=== PATIENT | male | born 1935 | race Caucasian/White ===

== ENCOUNTER → 2016-11-02 | Outpatient (CLI) | payer OTHER ==
[~2016-11-02] MED LIST: ASPEC325 PO; GFNSR600 PO; OMEG10007 PO; POTA10CA28 PO; SIMV10TA2 PO
[2016-11-02 13:12] LABS: ALT/SGPT 20 U/L (12-78); AST/SGOT 10 U/L (15-37); BLOOD UREA NITROGEN 19 mg/dl (7-18); BUN/CREATININE RATIO 14.6 (10-20); CALCIUM 8.9 mg/dl (8.5-10.1); CARBON DIOXIDE 29 mmol/L (21-32); CHLORIDE 108 mmol/L (98-107); GLUCOSE 86 mg/dl (70-99); POTASSIUM 4.3 mmol/L (3.5-5.1); SODIUM 142 mmol/L (136-145)
[2016-11-02 13:15] LABS: ALKALINE PHOSPHATASE 54 U/L (45-117); CHOLESTEROL 177 mg/dl (0-200); CHOLESTEROL/HDL RATIO 2.5; HDL CHOLESTEROL 72 mg/dl; TRIGLYCERIDES 47 mg/dl (0-150); VERY LOW DENSITY LIPOPROT CALC 9 mg/dl
== END | disposition home or self-care (01) ==
LOC: C.LABSPEC 11:58
PROVIDERS: ATTEND Internal Medicine
DX: E78.5 Hyperlipidemia, unspecified (principal)

== ENCOUNTER 2021-04-17 09:19 | Inpatient (IN) ==
[2021-04-17 10:33] LABS: Appearance Urine Clear (Clear); Bacteria Urine Automated Negative (Negative); Blood Urine Negative (Negative); Color Urine Dark Yellow; Glucose Urine UA Negative (Negative); Ketones Urine Trace (Negative); Leukocyte Esterase Urine Negative (Negative); Nitrite Urine Negative (Negative); Protein Urine Trace (Negative); RBC Urine Automated 0-4 /hpf (0-4); Specific Gravity Urine 1.029 (1.000-1.030); Urobilinogen Urine Negative (Negative)
[2021-04-17 10:35] LABS: Alanine Aminotransferase 14 U/L (12-78); Albumin Level 2.1 gm/dl (3.4-5.0); Aspartate Aminotransferase 6 U/L (15-37); BUN Creatinine Ratio 16.2 (10-20); Blood Urea Nitrogen 16 mg/dl (7-18); Calcium 8.6 mg/dl (8.5-10.1); Carbon Dioxide 24 mmol/L (21-32); Chloride 99 mmol/L (98-107); Creatinine Clr Calc Pharmacy 60.2 ml/min; Est GFR (African American) 81.3 ml/min; Est GFR (Non-African American) 70.1 ml/min; Glucose 129 mg/dl (70-99); Magnesium 2.1 mg/dl (1.8-2.4); Potassium 4.1 mmol/L (3.5-5.1); Sodium 132 mmol/L (136-145)
[2021-04-17 10:40] LABS: Albumin Globulin Ratio 0.4 (0.9-2); Alkaline Phosphatase 306 U/L (45-117); Bilirubin,Total 1.6 mg/dl (0.2-1); Globulin 4.8 gm/dl (2.5-4.0); NT Pro B Type Natriuretic Pept 4325 pg/ml (0-1800); Total Protein 6.9 gm/dl (6.4-8.2); Troponin I < 0.015 ng/ml (0-0.045)
[2021-04-17 10:43] LABS: Bilirubin Urine 1+ (Negative)
[2021-04-17 10:49] LABS: Hematocrit (blood only) 21.1 % (42-52); Hemoglobin 7.4 g/dL (14.0-18.0); Mean Corpuscular Hemoglobin 30.3 pg (25-34); Mean Corpuscular Hgb Conc 35.1 g/dL (32-36); Mean Corpuscular Volume 86.5 fL (80-100); Platelet Count 3 K/uL (130-400); RDW Coefficient of Variation 14.8 % (11.5-14.5); RDW Standard Deviation 47.2 fL (36.4-46.3); Red Blood Count 2.44 M/uL (4.7-6.1); White Blood Count 0.45 K/uL (4.8-10.8)
[2021-04-17] MEDS ORDERED: VANCOMYCIN HCL 1,750 MG in SODIUM CHLORIDE 0.9% 500 ML IV ONE (10:52)
[2021-04-17] MEDS ORDERED: CEFEPIME 2,000 MG/20 ML VIAL IV STA (10:52)
[2021-04-17] MEDS ORDERED: VANCOMYCIN CONSULT ACTIVE PRN (10:52)
[2021-04-17] MEDS ORDERED: DOXYCYCLINE HYCLATE 100 MG in DEXTROSE 5% 100 ML IV STA (10:54)
--- NOTE | 2021-04-17 11:01 | Emergency Department Note ---
Impression & Plan Pneumonia, Thrombocytopenia, Anemia ED Provider Note INFORMANT: Patient ED PROVIDER(S): Duke Worley MD CHIEF COMPLAINT: Cough PLAN: Disposition: Admitted Condition: Guarded Outpatient prescription management: none Referral: None MEDICAL DECISION MAKING: Patient presented because of worsening cough and weakness. notes he has had a decline recently but really notable over the last few days. Despite outpatient antibiotics he is not improving. The patient had a chest x-ray performed and he has what appears to be right upper and lower lobe pneumonia. The patient had a significant leukopenia and neutropenia on his CBC. He has thrombocytopenia and anemia. Chemistries did not reveal any significant abnormalities. Covid testing negative. The patient underwent blood cultures. He had a type and screen performed. He was consented for packed red blood cell transfusion as well as platelet transfusion. I did discuss the case with his oncologist Dr. Treadwell. He recommended blood, Neupogen, and platelets to be administered. This was done. The patient was treated with IV cefepime, vancomycin, and doxycycline to cover for worsening community-acquired infection. The patient had a slight elevation of his BNP. He has had no hypotension. Significant fluid resuscitation was not administered. Consultation was made with Dr. Harris of the hospitalist service. He evaluated the patient in the ER and admitted him. This twelve-lead ECG showed a normal sinus rhythm with a left bundle branch block. Triage Nursing notes reviewed and agree them. Vital Signs: reviewed and remarkable for borderline tachycardia Differential diagnosis: Pneumonia, COVID-19, infection, dehydration, metabolic abnormality, hypo/hyperglycemia, electrolyte disturbance, anemia, hypoxia, cardiac sources, intracerebral event, toxicologic, neurologic, as well as other pathologies. Diagnostics interpreted by me: ECG: Twelve-lead ECG reveals normal sinus rhythm at 93 bpm. Left axis deviation. Left bundle branch block. No PVCs. Septal Q waves. Cardiac Monitoring: Cardiac monitoring ordered by me: The patient was placed on continuous cardiac monitoring and observed. It revealed a normal sinus rhythm at 99 beats per minute without ectopy or evidence of dysrhythmia. Imaging studies: Chest imaging concerning for multifocal pneumonia on the right. I refer you to the EMR for further details. Patient has no history of vomiting or known aspiration. HPI: The patient is a 85 year old male who presents to the Emergency Room with complaints of chest pain. This started over the last 3 weeks and is worsening. The patient also notes the following associated symptoms, increasing cough, shortness of breath. The patient has been prescribed Augmentin by his PCP for relieving factors. History of MDS and is due for transfusion. Current pain is rated as 5/10. Pt denies LOC, headache, fevers, chills, diaphoresis, visual changes, neck pain, nausea, vomiting, abdominal pain, back pain, melena, hematochezia, urinary symptoms, numbness, weakness, lymphadenopathy, rash, or other complaints. ROS: See above HPI for pertinent positives & negatives. A total of 10 systems reviewed and were otherwise negative. PAST MEDICAL HISTORY:See Below , MDS PAST SURGICAL HISTORY:See Below, FAMILY HISTORY:See Below SOCIAL HISTORY:See Below, HOME MEDICATIONS:See Below ALLERGIES:See Below VITALS:See Below PHYSICAL EXAMINATION: GENERAL: Awake, alert, uncomfortable-appearing, in no distress HENT: Normocephalic, atraumatic. Oropharynx unremarkable. EYES: Pale conjunctiva. Sclera non-icteric. NECK: Inspection normal. Non-tender. Supple. No nuchal rigidity. FROM. No mas ses. RESPIRATORY: Scattered rales on the right. No wheezes. Increasedrespiratory effort. CARDIAC: Normal rate. Normal rhythm. No murmurs. No rubs. Extremities warm and well perfused. Pulses equal. No JVD. GI: Soft, non-distended. No tenderness to palpation. No rebound or guarding. No masses. RECTAL: Deferred. MUSCULOSKELETAL: Atraumatic. Chest examination reveals no tenderness. The back is symmetrical on inspection without obvious abnormality. There is no CVA tenderness to palpation. No joint edema. LOWER EXTREMITIES: Calves are equal size bilaterally and non-tender. No edema. No discoloration. NEURO: Normal sensorium. No sensory or motor deficits noted. SKIN: No rash or jaundice noted. CRITICAL CARE: I have personally spent greater than 35 minutes of critical care time in the direct management of this patient. This includes bedside care, interpretation of diagnostic studies, and testing, discussion with consultants, patient, and family members, and other required patient management activities. These minutes are in excess of all separately billable procedures. Duke Worley MD Past Med/Surg History Medical History (Updated 04/17/21 @ 13:04 by Sandeep Harris MD) History of pelvic fracture MDS (myelodysplastic syndrome) Parkinsons Surgical History (Updated 04/17/21 @ 12:04 by Sandeep Harris MD) History of prostate biopsy S/P aortic valve repair S/P lateral meniscectomy of left knee Family History Father Lung cancer Uncle Lung cancer Social History (Updated 04/17/21 @ 13:03 by Sandeep Harris MD) Smoking Status: Never smoker Number of Years Since Quit: 10; Hx Alcohol Use: No Preferred Language: Kinyarwanda Communication Ability: Effective Principal Scientist Required: No Beliefs That Will Affect Care: None marital status: Current Living Situation: Spouse current occupational status: employed 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[employer] Other Information That Helps Us Care for You: No Feels Safe at Home: Yes Safety Concerns: Feels Safe At This Time Assistive Devices: Glasses, Hearing Aid - Left and Hearing Aid - Right Allergies Allergies Allergy/AdvReac Type Severity Reaction Status Date / Time Sulfa (Sulfonamide Allergy Mild Unknown Verified 04/17/21 10:18 Antibiotics) oxycodone Allergy Unknown Unknown Verified 04/17/21 10:18 Home Meds Home Medications Medication Instructions Recorded Confirmed famotidine 20 mg tablet (Pepcid) 20 mg PO BID 04/16/19 04/17/21 guaifenesin 600 mg tablet, 600 mg PO UD PRN 04/16/19 04/17/21 extended release 12 hr (Mucinex) docusate sodium 100 mg capsule 100 mg PO BID 03/09/21 04/17/21 (Colace) amoxicillin 875 mg tablet 875 mg PO BID 04/17/21 04/17/21 carbidopa ER 25 mg-levodopa 100 mg 1 tab PO TID 04/17/21 04/17/21 tablet,extended release cyanocobalamin (vitamin B-12) 1,000 mcg PO DAILY 04/17/21 04/17/21 1,000 mcg/mL oral drops (Vitamin B-12) thiamine HCl (vitamin B1) 100 mg 100 mg PO DAILY 04/17/21 04/17/21 tablet (Vitamin B-1) Results & Data (ED) Vital Signs Vital Signs - 24 hr 04/17/21 09:26 04/17/21 09:44 04/17/21 10:00 Temperature 36.6 C Temperature Source Temporal Artery Scan Pulse Rate 104 H 98 H 99 H Respiratory Rate 16 25 H 26 H Respiratory Effort / Characteristics Non-Labored Respiratory Depth Normal Blood Pressure 115/62 134/75 Blood Pressure Mean 79 94 Pulse Oximetry 98 Oxygen Delivery Method Room Air Sepsis Recent Fever Within 48 Hours No Sepsis New/Unexplained Change in Mental Status No Sepsis Action Taken by Nursing No Action Required 04/17/21 10:30 04/17/21 10:39 04/17/21 11:00 Temperature Temperature Source Pulse Rate 94 H 91 H Respiratory Rate 28 H 22 Respiratory Effort / Characteristics Respiratory Depth Blood Pressure 119/66 127/67 Blood Pressure Mean 83 87 Pulse Oximetry 96 Oxygen Delivery Method Room Air Sepsis Recent Fever Within 48 Hours Sepsis New/Unexplained Change in Mental Status Sepsis Action Taken by Nursing 04/17/21 11:30 04/17/21 12:00 04/17/21 12:30 Temperature Temperature Source Pulse Rate 95 H 94 H 110 H Respiratory Rate 26 H 28 H 30 H Respiratory Effort / Characteristics Respiratory Depth Blood Pressure 137/74 135/82 161/85 H Blood Pressure Mean 95 99 110 Pulse Oximetry Oxygen Delivery Method Sepsis Recent Fever Within 48 Hours Sepsis New/Unexplained Change in Mental Status Sepsis Action Taken by Nursing Laboratory Data Result diagrams: 04/17/21 09:58 04/17/21 09:58 Lab Results 04/17/21 04/17/21 04/17/21 Range/Units 09:58 09:58 09:58 WBC 0.45 L* (4.8-10.8) K/uL RBC 2.44 L (4.7-6.1) M/uL Hgb 7.4 L (14.0-18.0) g/dL Hct 21.1 L (42-52) % MCV 86.5 (80-100) fL MCH 30.3 (25-34) pg MCHC 35.1 (32-36) g/dL RDW Std Deviation 47.2 H (36.4-46.3) fL RDW Coeff of Sarita 14.8 H (11.5-14.5) % Plt Count 3 L* (130-400) K/uL Immature Gran % (Auto) Cancelled Neut % (Auto) Cancelled Lymph % (Auto) Cancelled [place] % (Auto) Cancelled Eos % (Auto) Cancelled Baso % (Auto) Cancelled Neut # (Auto) Cancelled Lymph # (Auto) Cancelled [place] # (Auto) Cancelled Eos # (Auto) Cancelled Baso # (Auto) Cancelled Immature Gran # (Auto) Cancelled Neutrophils % (Manual) Cancelled Band Neutrophils % Cancelled Lymphocytes % (Manual) Cancelled Prolymphocyte % Cancelled Reactive Lymphs % (Man) Cancelled Monocytes % (Manual) Cancelled Eosinophils % (Manual) Cancelled Basophils % (Manual) Cancelled Metamyelocytes % (Man) Cancelled Myelocytes % (Man) Cancelled Promyelocytes % (Man) Cancelled Blast Cells % (Manual) Cancelled Plasma Cell % (Manual) Cancelled Other Cells % Cancelled Nucleated RBC % Cancelled Neutrophils # (Manual) Cancelled Band Neutrophils # Cancelled Total Absolute Neuts Cancelled Lymphocytes # (Manual) Cancelled Prolymphocyte # Cancelled Reactive Lymphs # Cancelled Total Abs Lymphocytes Cancelled Monocytes # (Manual) Cancelled Eosinophils # (Manual) Cancelled Basophils # (Manual) Cancelled Metamyelocytes # (Man) Cancelled Myelocytes # (Manual) Cancelled Promyelocytes # (Man) Cancelled Blast Cells # (Man) Cancelled Plasma Cell # (Manual) Cancelled Other Cells # Cancelled Nucleated RBCs # (Man) Cancelled Hypersegmented Neuts Cancelled Hyposegmented Neuts Cancelled Hypogranular Neuts Cancelled Large Granular Lymphs Cancelled # Lrg Granular Lymphs Cancelled Hairy Cells Cancelled Smudge Cells Cancelled Toxic Granulation Cancelled Toxic Vacuolation Cancelled Dohle Bodies Cancelled [place] Rods Cancelled Hypogranular Platelets Cancelled Clumped Platelets Cancelled Giant Platelets Cancelled Platelet Satelliting Cancelled RBC Morphology Cancelled Polychromasia Cancelled Hypochromasia Cancelled Poikilocytosis Cancelled Basophilic Stippling Cancelled Anisocytosis Cancelled Microcytosis Cancelled Macrocytosis Cancelled Spherocytes Cancelled Pappenheimer Bodies Cancelled Sickle Cells Cancelled Target Cells Cancelled Tear Drop Cells Cancelled Ovalocytes Cancelled Stomatocytes Cancelled Jacob-Cubero Bodies Cancelled Echinocytes Cancelled Acanthocytes (Spur) Cancelled Rouleaux Cancelled RBC Agglutinates Cancelled Schistocytes Cancelled RBC Morph Comment Cancelled Sezary Cell Cancelled Sodium 132 L (136-145) mmol/L Potassium 4.1 (3.5-5.1) mmol/L Chloride 99 (98-107) mmol/L Carbon Dioxide 24 (21-32) mmol/L Anion Gap 9.0 (3-11) BUN 16 (7-18) mg/dl Creatinine 0.99 (0.6-1.4) mg/dl Est Cr Clr Drug Dosing 60.2 ml/min Est GFR ( Amer) 81.3 ml/min Est GFR (Non-Af Amer) 70.1 ml/min BUN/Creatinine Ratio 16.2 (10-20) Glucose 129 H (70-99) mg/dl Calcium 8.6 (8.5-10.1) mg/dl Magnesium 2.1 (1.8-2.4) mg/dl Total Bilirubin 1.6 H (0.2-1) mg/dl AST 6 L (15-37) U/L ALT 14 (12-78) U/L Alkaline Phosphatase 306 H (45-117) U/L Troponin I < 0.015 (0-0.045) ng/ml NT-Pro-B Natriuret Pep 4325 H (0-1800) pg/ml Total Protein 6.9 (6.4-8.2) gm/dl Albumin 2.1 L (3.4-5.0) gm/dl Globulin 4.8 H (2.5-4.0) gm/dl Albumin/Globulin Ratio 0.4 L (0.9-2) Procalcitonin 0.70 H (0-0.5) ng/ml Urine Color Urine Appearance (Clear) Urine pH (4.5-7.5) Ur Specific [place] (1.000-1.030) Urine Protein (Negative) Urine Glucose (UA) (Negative) Urine Ketones (Negative) Urine Blood (Negative) Urine Nitrite (Negative) Urine Bilirubin (Negative) Urine Urobilinogen (Negative) Ur Leukocyte Esterase (Negative) Urine WBC (Auto) (0-5) /hpf Urine RBC (Auto) (0-4) /hpf U Hyaline Cast (Auto) (0-5) /lpf U Epithel Cells (Auto) (0-5) /lpf Urine Bacteria (Auto) (Negative) COVID-19 Eval Order SARS-CoV-2 (PCR) (Negative) Blood Type Antibody Screen Crossmatch 11/01/2804/17/21 04/17/21 Range/Units 10:10 10:33 10:45 WBC (4.8-10.8) K/uL RBC (4.7-6.1) M/uL Hgb (14.0-18.0) g/dL Hct (42-52) % MCV (80-100) fL MCH (25-34) pg MCHC (32-36) g/dL RDW Std Deviation (36.4-46.3) fL RDW Coeff of Sarita (11.5-14.5) % Plt Count (130-400) K/uL Immature Gran % (Auto) Neut % (Auto) Lymph % (Auto) [place] % (Auto) Eos % (Auto) Baso % (Auto) Neut # (Auto) Lymph # (Auto) [place] # (Auto) Eos # (Auto) Baso # (Auto) Immature Gran # (Auto) Neutrophils % (Manual) Band Neutrophils % Lymphocytes % (Manual) Prolymphocyte % Reactive Lymphs % (Man) Monocytes % (Manual) Eosinophils % (Manual) Basophils % (Manual) Metamyelocytes % (Man) Myelocytes % (Man) Promyelocytes % (Man) Blast Cells % (Manual) Plasma Cell % (Manual) Other Cells % Nucleated RBC % Neutrophils # (Manual) Band Neutrophils # Total Absolute Neuts Lymphocytes # (Manual) Prolymphocyte # Reactive Lymphs # Total Abs Lymphocytes Monocytes # (Manual) Eosinophils # (Manual) Basophils # (Manual) Metamyelocytes # (Man) Myelocytes # (Manual) Promyelocytes # (Man) Blast Cells # (Man) Plasma Cell # (Manual) Other Cells # Nucleated RBCs # (Man) Hypersegmented Neuts Hyposegmented Neuts Hypogranular Neuts Large Granular Lymphs # Lrg Granular Lymphs Hairy Cells Smudge Cells Toxic Granulation Toxic Vacuolation Dohle Bodies [place] Rods Hypogranular Platelets Clumped Platelets Giant Platelets Platelet Satelliting RBC Morphology Polychromasia Hypochromasia Poikilocytosis Basophilic Stippling Anisocytosis Microcytosis Macrocytosis Spherocytes Pappenheimer Bodies Sickle Cells Target Cells Tear Drop Cells Ovalocytes Stomatocytes Jacob-Cubero Bodies Echinocytes Acanthocytes (Spur) Rouleaux RBC Agglutinates Schistocytes RBC Morph Comment Sezary Cell Sodium (136-145) mmol/L Potassium (3.5-5.1) mmol/L Chloride (98-107) mmol/L Carbon Dioxide (21-32) mmol/L Anion Gap (3-11) BUN (7-18) mg/dl Creatinine (0.6-1.4) mg/dl Est Cr Clr Drug Dosing ml/min Est GFR ( Amer) ml/min Est GFR (Non-Af Amer) ml/min BUN/Creatinine Ratio (10-20) Glucose (70-99) mg/dl Calcium (8.5-10.1) mg/dl Magnesium (1.8-2.4) mg/dl Total Bilirubin (0.2-1) mg/dl AST (15-37) U/L ALT (12-78) U/L Alkaline Phosphatase (45-117) U/L Troponin I (0-0.045) ng/ml NT-Pro-B Natriuret Pep (0-1800) pg/ml Total Protein (6.4-8.2) gm/dl Albumin (3.4-5.0) gm/dl Globulin (2.5-4.0) gm/dl Albumin/Globulin Ratio (0.9-2) Procalcitonin (0-0.5) ng/ml Urine Color Dark Yellow Urine Appearance Clear (Clear) Urine pH 5.0 (4.5-7.5) Ur Specific [place] 1.029 (1.000-1.030) Urine Protein Trace H (Negative) Urine Glucose (UA) Negative (Negative) Urine Ketones Trace H (Negative) Urine Blood Negative (Negative) Urine Nitrite Negative (Negative) Urine Bilirubin 1+ H (Negative) Urine Urobilinogen Negative (Negative) Ur Leukocyte Esterase Negative (Negative) Urine WBC (Auto) 1-5 (0-5) /hpf Urine RBC (Auto) 0-4 (0-4) /hpf U Hyaline Cast (Auto) 1-5 (0-5) /lpf U Epithel Cells (Auto) 5-10 H (0-5) /lpf Urine Bacteria (Auto) Negative (Negative) COVID-19 Eval Order Covid19 at [facility] SARS-CoV-2 (PCR) (Negative) Blood Type A Positive Antibody Screen NEGATIVE Crossmatch See Detail 04/17/21 Range/Units 10:45 WBC (4.8-10.8) K/uL RBC (4.7-6.1) M/uL Hgb (14.0-18.0) g/dL Hct (42-52) % MCV (80-100) fL MCH (25-34) pg MCHC (32-36) g/dL RDW Std Deviation (36.4-46.3) fL RDW Coeff of Sarita (11.5-14.5) % Plt Count (130-400) K/uL Immature Gran % (Auto) Neut % (Auto) Lymph % (Auto) [place] % (Auto) Eos % (Auto) Baso % (Auto) Neut # (Auto) Lymph # (Auto) [place] # (Auto) Eos # (Auto) Baso # (Auto) Immature Gran # (Auto) Neutrophils % (Manual) Band Neutrophils % Lymphocytes % (Manual) Prolymphocyte % Reactive Lymphs % (Man) Monocytes % (Manual) Eosinophils % (Manual) Basophils % (Manual) Metamyelocytes % (Man) Myelocytes % (Man) Promyelocytes % (Man) Blast Cells % (Manual) Plasma Cell % (Manual) Other Cells % Nucleated RBC % Neutrophils # (Manual) Band Neutrophils # Total Absolute Neuts Lymphocytes # (Manual) Prolymphocyte # Reactive Lymphs # Total Abs Lymphocytes Monocytes # (Manual) Eosinophils # (Manual) Basophils # (Manual) Metamyelocytes # (Man) Myelocytes # (Manual) Promyelocytes # (Man) Blast Cells # (Man) Plasma Cell # (Manual) Other Cells # Nucleated RBCs # (Man) Hypersegmented Neuts Hyposegmented Neuts Hypogranular Neuts Large Granular Lymphs # Lrg Granular Lymphs Hairy Cells Smudge Cells Toxic Granulation Toxic Vacuolation Dohle Bodies [place] Rods Hypogranular Platelets Clumped Platelets Giant Platelets Platelet Satelliting RBC Morphology Polychromasia Hypochromasia Poikilocytosis Basophilic Stippling Anisocytosis Microcytosis Macrocytosis Spherocytes Pappenheimer Bodies Sickle Cells Target Cells Tear Drop Cells Ovalocytes Stomatocytes Jacob-Cubero Bodies Echinocytes Acanthocytes (Spur) Rouleaux RBC Agglutinates Schistocytes RBC Morph Comment Sezary Cell Sodium (136-145) mmol/L Potassium (3.5-5.1) mmol/L Chloride (98-107) mmol/L Carbon Dioxide (21-32) mmol/L Anion Gap (3-11) BUN (7-18) mg/dl Creatinine (0.6-1.4) mg/dl Est Cr Clr Drug Dosing ml/min Est GFR ( Amer) ml/min Est GFR (Non-Af Amer) ml/min BUN/Creatinine Ratio (10-20) Glucose (70-99) mg/dl Calcium (8.5-10.1) mg/dl Magnesium (1.8-2.4) mg/dl Total Bilirubin (0.2-1) mg/dl AST (15-37) U/L ALT (12-78) U/L Alkaline Phosphatase (45-117) U/L Troponin I (0-0.045) ng/ml NT-Pro-B Natriuret Pep (0-1800) pg/ml Total Protein (6.4-8.2) gm/dl Albumin (3.4-5.0) gm/dl Globulin (2.5-4.0) gm/dl Albumin/Globulin Ratio (0.9-2) Procalcitonin (0-0.5) ng/ml Urine Color Urine Appearance (Clear) Urine pH (4.5-7.5) Ur Specific [place] (1.000-1.030) Urine Protein (Negative) Urine Glucose (UA) (Negative) Urine Ketones (Negative) Urine Blood (Negative) Urine Nitrite (Negative) Urine Bilirubin (Negative) Urine Urobilinogen (Negative) Ur Leukocyte Esterase (Negative) Urine WBC (Auto) (0-5) /hpf Urine RBC (Auto) (0-4) /hpf U Hyaline Cast (Auto) (0-5) /lpf U Epithel Cells (Auto) (0-5) /lpf Urine Bacteria (Auto) (Negative) COVID-19 Eval Order SARS-CoV-2 (PCR) NEGATIVE (Negative) Blood Type Antibody Screen Crossmatch Administered Medications Discontinued Medications Albuterol (Albut/Ipratrop 3mg/0.5mg Neb 3 Ml Vial) 3 ml NEB NOW STA Stop: 04/17/21 12:47 Last Admin: 04/17/21 13:13 Dose: 3 ml Documented by: [id number] Filgrastim (Filgrastim 480 Mcg/1.6 Ml Vial) 300 mcg SC ONE ONE Stop: 04/17/21 12:25 Last Admin: 04/17/21 13:23 Dose: 300 mcg Documented by: [id number] Cefepime HCl (Maxipime) 2,000 mg in 20 mls @ 5 mls/min IV NOW STA; Protocol Stop: 04/17/21 10:55 Last Admin: 04/17/21 11:00 Dose: 5 mls/min Documented by: [id number] Vancomycin HCl 1,750 mg/ (Sodium Chloride) 535 mls @ 200 mls/hr IV NOW ONE Stop: 04/17/21 13:32 Last Infusion: 04/17/21 13:55 Dose: 0 mls/hr Documented by: [id number] Admin: 04/17/21 11:00 Dose: 200 mls/hr Documented by: [id number] Doxycycline Hyclate 100 mg/ (Dextrose) 110 mls @ 50 mls/hr IV NOW STA Stop: 04/17/21 13:05 Last Infusion: 04/17/21 13:55 Dose: 0 mls/hr Documented by: [id number] Admin: 04/17/21 11:19 Dose: 50 mls/hr Documented by: [id number] Imaging Data Radiologist's Impression: Chest X-Ray 04/17/21 10:16 XR chest 1V portable CLINICAL HISTORY: Dyspnea. COMPARISON STUDY: 04/14/2021 TECHNIQUE: 1 view of the chest FINDINGS: Single frontal view of the chest demonstrates the cardiomediastinal silhouette to be within normal limits. The patient is status post previous cardiothoracic surgery. Compared to examination, confluent alveolar opacities are now seen within both the right upper and right lower lobes. Left hemithorax is clear. These findings suggest possible aspiration pneumonitis. There is no evidence for pleural effusion. There is no evidence for vascular congestion. There is no acute osseous pathology. IMPRESSION: Interval development of confluent alveolar opacities within both the right upper and right lower lobes. This rapid development of these large alveolar opacities suggest possible aspiration pneumonitis. ACT 112: Negative or not required by law. Electronically signed by: Isaac Kendall M.D. 04/17/2021 11:12 AM Discharge Plan Visit Data Chief Complaint: Chest Pain Stated Complaint: CHEST PAIN, PNEUMONIA HX ED Provider: Duke Worley Discharge Problem: Pneumonia, Thrombocytopenia, Anemia Patient Disposition: Admitted As Inpatient Discharge Instructions Interventions: ED Discharge Assessment Last Done: 04/17/21 14:17
--- NOTE | 2021-04-17 11:13 | XRay Report ---
XR chest 1V portable CLINICAL HISTORY: Dyspnea. COMPARISON STUDY: 04/14/2021 TECHNIQUE: 1 view of the chest FINDINGS: Single frontal view of the chest demonstrates the cardiomediastinal silhouette to be within normal li mits. The patient is status post previous cardiothoracic surgery. Compared to examination, confluent alveolar opacities are now seen within both the right upper and right lower lobes. Left hemithorax is clear. These findings suggest possible aspiration pneumonitis. There is no evidence for pleural effu terrance. There is no evidence for vascular congestion. There is no acute osseous pathology. IMPRESSION: Interval development of confluent alveolar opacities within both the right upper and righ t lower lobes. This rapid development of these large alveolar opacities suggest possible aspiration p neumonitis. ACT 112: Negative or not required by law. Electronically signed by: Isaac Kendall M.D. 04/17/2021 11:12 AM
--- NOTE | 2021-04-17 12:10 | History & Physical Report ---
Date of Service April 17, 2021 Assessment & Plan (1) Pneumonia: Plan: MRSA nasal swab negative therefore will d/c vancomycin. Switch cefepime to Zosyn due to concern for aspiration. Continue doxycycline for atypical coverage. SLT assessment for aspirations Trial duoneb without significant improvement despite audible wheezing therefore will defer scheduled duonebs or steroids currently as no diagnosis of asthma or COPD. 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 On no current chemotherapy. Plan: VTE prophylaxis - deferred in setting of thrombocytopenia Diet - NPO pending speech evaluation Disposition - admit to med/surg Admission and Anticipated Discharge Date Admission Date: April 17, 2021 History of Present Illness Chief Complaint: Shortness of breath, generalized weakness Primary Care Provider: Puneet Sawant MD Jono Warner is an 85 year old male with Parkinson's and MDS who presents to the ER with productive cough (unknown color), shortness of breath, chest pain (right sided, no radiation, worse on palpation). Sick for the last 2-3 weeks. Last 2-4 days he has been much worse and waking up in morning with mouthful of phlegm. Shortness of breath non-positional, worse on exertion. He was started on Symbicort 4 weeks ago due to wheezing (10 day course reported by patient). He reports temporary relief using this and notes his wheezing has been going on for years with normal pulmonology workup.. CXR was negative at that time. Started 04/14 on amoxicillin due to CXR findings showing multifocal pneumonia at that time. No known choking/coughing after eating. Nose bleed 1 week ago. Prone to spontaneous bleeding but resolves quickly. Feels constipated with black stool but this is longstanding, no new change in bowels. In the ER CXR is concerning for aspiration pneumonia. SARS-COV-2 negative. Plt 3, Hgb 7.4 and WBC 0.45. He was diagnosed with pneumonia, blood cultures taken and he was started on broad spectrum antibiotics with cefepime, doxycycline and vancomycin. Regarding his pancytopenia. This was discussed with his hematology (Dr Treadwell) and recommend Neupogen, Plt transfusion and 2 units blood transfusion. He was referred to medicine for admission and ongoing management. Allergies Allergy/AdvReac Type Severity Reaction Status Date / Time Sulfa (Sulfonamide Allergy Mild Unknown Verified 04/17/21 10:18 Antibiotics) oxycodone Allergy Unknown Unknown Verified 04/17/21 10:18 Home Medications Medication Instructions Recorded Confirmed Type famotidine 20 mg tablet (Pepcid) 20 mg PO BID 04/16/19 04/17/21 History guaifenesin 600 mg tablet, 600 mg PO UD PRN 04/16/19 04/17/21 History extended release 12 hr (Mucinex) docusate sodium 100 mg capsule 100 mg PO BID 03/09/21 04/17/21 History (Colace) amoxicillin 875 mg tablet 875 mg PO BID 04/17/21 04/17/21 History carbidopa ER 25 mg-levodopa 100 mg 1 tab PO TID 04/17/21 04/17/21 History tablet,extended release cyanocobalamin (vitamin B-12) 1,000 mcg PO DAILY 04/17/21 04/17/21 History 1,000 mcg/mL oral drops (Vitamin B-12) thiamine HCl (vitamin B1) 100 mg 100 mg PO DAILY 04/17/21 04/17/21 History tablet (Vitamin B-1) Past Med/Surg History Medical History (Updated 04/17/21 @ 13:04 by Sandeep Harris MD) History of pelvic fracture MDS (myelodysplastic syndrome) Parkinsons Surgical History (Updated 04/17/21 @ 12:04 by Sandeep Harris MD) History of prostate biopsy S/P aortic valve repair S/P lateral meniscectomy of left knee Family History Father Lung cancer Uncle Lung cancer Social History (Updated 04/17/21 @ 13:03 by Sandeep Harris MD) Smoking Status: Never smoker Number of Years Since Quit: 10; Hx Alcohol Use: No Preferred Language: Tanzanian Communication Ability: Effective Communications Agent Required: No Beliefs That Will Affect Care: None marital status: Current Living Situation: Spouse current occupational status: employed 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 Other Information That Helps Us Care for You: No Feels Safe at Home: Yes Safety Concerns: Feels Safe At This Time Assistive Devices: None Review of Systems Review of Systems: All systems reviewed & are unremarkable except as noted in HPI & below Physical Exam Constitutional: + acute distress (respiratory), + ill appearing (pale) and + frail appearing Eyes: PERRL, conjunctivae normal, anicteric sclerae Respiratory: + labored breathing, + retractions, + uses accessory muscles, + cough (dry, frequent), + tachypneic and + audible wheezes (expiratory); + abnormal respiratory effort and + not able to speak in complete sentence Auscultation: + crackles (Right base); no rales, no rhonchi and no wheezes Cardiovascular: Rate/Rhythm: regular rhythm and + tachycardic Heart Sounds: + murmur (systolic LUSB 2/6); + abnormal S2 (loud) Extremities: normal capillary refill; no calf tenderness and no pedal edema Gastrointestinal (Abdomen): Inspection/Auscultation: abdomen normal to inspection and normal bowel sounds; abdomen not distended Percussion/Palpation: abdomen soft; abdomen nontender, no guarding and abdomen not rigid Musculoskeletal: no cyanosis or clubbing, extremities motor strength 5/5 Skin: no rashes, warm and dry Neurologic: moves all extremities and awake; not confused Motor/Sensory: + tremor (very mild left hand); no pronator drift Psychiatric: A+Ox3, euthymic affect Results & Data Results & Data ([facility]) Vital Signs (Past 12 Hours) Vital Signs Temp Pulse Resp BP Pulse Ox 04/17/21 11:30 95 H 26 H 137/74 04/17/21 11:00 91 H 22 127/67 04/17/21 10:39 96 04/17/21 10:30 94 H 28 H 119/66 04/17/21 10:00 99 H 26 H 134/75 04/17/21 09:44 98 H 25 H 04/17/21 09:26 36.6 C 104 H 16 115/62 98 Diagnostic Findings XR chest 1V portable CLINICAL HISTORY: Dyspnea. COMPARISON STUDY: 04/14/2021 TECHNIQUE: 1 view of the chest FINDINGS: Single frontal view of the chest demonstrates the cardiomediastinal silhouette to be within normal limits. The patient is status post previous cardiothoracic surgery. Compared to examination, confluent alveolar opacities are now seen within both the right upper and right lower lobes. Left hemithorax is clear. These findings suggest possible aspiration pneumonitis. There is no evidence for pleural effusion. There is no evidence for vascular congestion. There is no acute osseous pathology. IMPRESSION: Interval development of confluent alveolar opacities within both the right upper and right lower lobes. This rapid development of these large a lveolar opacities suggest possible aspiration pneumonitis. Medications Administered ER Medications Given: Vancomycin 1750mg IV Cefepime 2000mg IV Doxycycline 100mg IV ECG Indication: SOB/dyspnea Rate (beats per minute): 93 Rhythm: normal sinus Findings: + LBBB and + left axis deviation Code Status & VTE Plan Code Status Full VTE Prophylaxis Plan VTE Prophylaxis will be ordered: Yes Reason for no VTE drug order: Contraindicated PG Care Time/CCT Total # of Minutes Spent Total Time Spent with Patient: Total time spent is greater than 50% in coordination of care (as documented) at patient's floor/unit and/or counseling patient: Coding Level of Care Code 22280 Initial Inpt Care Lvl 3 Diagnoses Parkinsons G20 Pancytopenia D61.818 Pneumonia J18.9 S/P aortic valve repair Z98.890 MDS (myelodysplastic syndrome) D46.9
[2021-04-17] MEDS ORDERED: FILGRASTIM 480 MCG/1.6 ML VIAL SC ONE (12:24)
[2021-04-17] MEDS ORDERED: SODIUM CHLORIDE 0.9% 250 ML IV PRN (12:24)
--- NOTE | 2021-04-17 12:24 | Electrocardiogram Report ---
Test Reason : Blood Pressure : / mmHG Vent. Rate : 093 BPM Atrial Rate : 093 BPM P-R Int : 156 ms QRS Dur : 132 ms QT Int : 380 ms P-R-T Axes : 094 -40 086 degrees QTc Int : 472 ms Poor data quality, interpretation may be adversely affected Normal sinus rhythm Left axis deviation Left bundle branch block Cannot rule out Septal infarct (cited on or before 17-APR-2021) Abnormal ECG When compared with ECG of 07-FEB-2011 20:01, No significant change Confirmed by Eric Negro ([id number]) on 04/17/2021 12:23:51 PM Referred By: REFERRED SELF Confirmed By:Eric Negro
[2021-04-17] MEDS ORDERED: ALBUT/IPRATROP 3MG/0.5MG NEB 3 ML VIAL NEB STA (12:46)
[2021-04-17] MEDS ORDERED: guaiFENesin 600 MG TABCR PO PRN (14:55)
[2021-04-17] MEDS ORDERED: ACETAMINOPHEN 325 MG TAB PO PRN (14:55)
[2021-04-17] MEDS ORDERED: ONDANSETRON INJ 2 MG/ML 2 ML VIAL IV PRN (14:55)
[2021-04-17] MEDS ORDERED: PIPERACILLIN/TAZOBACTAM 3.375 GM in DEXTROSE 5% 100 ML IV ONE (16:00)
[2021-04-17] MEDS ORDERED: ALBUT/IPRATROP 3MG/0.5MG NEB 3 ML VIAL NEB PRN (16:14)
[2021-04-17] MEDS: CARBIDOPA/LEVODOPA 25/100MG EXT REL TAB PO SCH ×2 (16:29→20:37)
[2021-04-17] MEDS: DOXYCYCLINE HYCLATE 100 MG in DEXTROSE 5% 100 ML IV SCH (18:43)
[2021-04-17] MEDS ORDERED: Nursing to Pharmacy Communication SCH (18:45)
[2021-04-17] MEDS ORDERED: CEFEPIME 2,000 MG in SYRINGE 0 ML IV SCH (19:00)
[2021-04-17] MEDS: guaiFENesin 600 MG TABCR PO SCH (20:37)
[2021-04-17] MEDS: FAMOTIDINE 20 MG TAB PO SCH (20:37)
[2021-04-17] MEDS: DOCUSATE SODIUM 100 MG CAP PO SCH (20:37)
[2021-04-17] MEDS: SODIUM CHLORIDE 0.9% 1000ML 1,000 ML IV SCH (21:51)
[2021-04-17] MEDS: PIPERACILLIN/TAZOBACTAM 3.375 GM in DEXTROSE 5% 100 ML IV SCH (21:51)
[2021-04-18 00:30] LABS: Hematocrit (blood only) 21.8 % (42-52); Hemoglobin 7.6 g/dL (14.0-18.0)
[2021-04-18 00:54] LABS: Mean Corpuscular Hemoglobin 29.2 pg (25-34); Mean Platelet Volume 8.9 fL (7.4-10.4); Platelet Count 10 K/uL (130-400); RDW Coefficient of Variation 15.3 % (11.5-14.5); RDW Standard Deviation 47.5 fL (36.4-46.3)
[2021-04-18 02:45] LABS: Mean Corpuscular Hgb Conc 34.9 g/dL (32-36); Mean Corpuscular Volume 83.8 fL (80-100)
[2021-04-18] MEDS: DOXYCYCLINE HYCLATE 100 MG in DEXTROSE 5% 100 ML IV SCH ×2 (05:59→17:34)
[2021-04-18] MEDS: PIPERACILLIN/TAZOBACTAM 3.375 GM in DEXTROSE 5% 100 ML IV SCH ×3 (05:59→21:28)
[2021-04-18 06:35] LABS: Hematocrit (blood only) 22.9 % (42-52); Hemoglobin 7.8 g/dL (14.0-18.0); Mean Corpuscular Hemoglobin 29.4 pg (25-34); Mean Corpuscular Hgb Conc 34.1 g/dL (32-36); Mean Corpuscular Volume 86.4 fL (80-100); Platelet Count 39 K/uL (130-400); RDW Coefficient of Variation 15.3 % (11.5-14.5); RDW Standard Deviation 48.3 fL (36.4-46.3); Red Blood Count 2.65 M/uL (4.7-6.1); White Blood Count 0.78 K/uL (4.8-10.8)
[2021-04-18 07:00] LABS: BUN Creatinine Ratio 21.6 (10-20); Calcium 8.5 mg/dl (8.5-10.1); Creatinine Clr Calc Pharmacy 71.8 ml/min; Est GFR (African American) 94.3 ml/min; Est GFR (Non-African American) 81.4 ml/min; Potassium 3.9 mmol/L (3.5-5.1)
[2021-04-18 07:06] LABS: ALC (manual) 0.39 K/uL (1.2-3.4); ANC (manual) 0.32 K/uL (1.4-6.5); Hypogranular Neutrophils 2+; Lymphocytes # (manual) 0.39 K/uL (1.2-3.4); Monocytes # (manual) 0.07 K/uL (0.11-0.59); Monocytes % (manual) 9.5 %; Neutrophils # (manual) 0.32 K/uL (1.4-6.5); Neutrophils % (manual) 40.5 %
[2021-04-18 07:31] LABS: Alanine Aminotransferase < 6 U/L (12-78); Albumin Level 1.8 gm/dl (3.4-5.0); Alkaline Phosphatase 220 U/L (45-117); Aspartate Aminotransferase 7 U/L (15-37); Bilirubin,Total 1.8 mg/dl (0.2-1); Total Protein 6.1 gm/dl (6.4-8.2)
[2021-04-18] MEDS: SODIUM CHLORIDE 0.9% 1000ML 1,000 ML IV SCH (08:18)
[2021-04-18] MEDS: CARBIDOPA/LEVODOPA 25/100MG EXT REL TAB PO SCH ×3 (09:17→20:03)
[2021-04-18] MEDS: CYANOCOBALAMIN 500 MCG TABLET (VITAMIN B-12) PO SCH (09:17)
[2021-04-18] MEDS: DOCUSATE SODIUM 100 MG CAP PO SCH ×2 (09:18→20:02)
[2021-04-18] MEDS: THIAMINE HCL 100 MG TAB PO SCH (09:18)
[2021-04-18] MEDS: guaiFENesin 600 MG TABCR PO SCH ×2 (09:18→20:02)
[2021-04-18] MEDS: FAMOTIDINE 20 MG TAB PO SCH ×2 (09:18→20:02)
--- NOTE | 2021-04-18 11:13 | Hospitalist Progress Note ---
Date of Service April 18, 2021 Assessment & Plan (1) Pneumonia: Plan: - Was initiated on Symbicort x 4 weeks ago due to wheezing (x 10 days treatment); reported temporary relief but states his wheezing has been going on for years and has had a normal pulmonary work-up; recently started on Amoxicillin on 04/14 due to CXR findings of multifocal pneumonia - Continue Zosyn for aspiration concern and Doxycycline for atypical coverage; MRSA nasal swab negative and Vanc was D/Cd - STATE EDITOR for further evaluations for aspiration risk - did discuss with STATE EDITOR with plans to do further testing - Albuterol PRN; Guaifenesin 1200 mg BID - Continue IVF until able to determine dietary allowance (2) Pancytopenia: Plan: - Suspected secondary to MDS - Neutropenic precautions - Received 2 units packed RBCs, 1 unit Plt and Neupogen per [facility] recommendations on 04/18 - Hgb 7.8, WBC 0.78 and platelets up to 39 and will monitor (3) Parkinsons: Plan: - Continue Sinemet ER 25/100 TID (4) S/P aortic valve repair: Plan: - Bioprosthetic aortic valve (5) MDS (myelodysplastic syndrome): Plan: - Since last August. Not on current chemotherapy. Plan: VTE prophylaxis - deferred in setting of thrombocytopenia Diet - NPO pending speech evaluation Disposition - requires ongoing hospital stay at this time Admission and Anticipated Discharge Date Admission Date: April 17, 2021 Subjective Reports doing alright today. Feels his breathing is stable and not too bothered by it. Has a weak cough that is mostly dry but occasionally brings up sputum. He reports chronic swallowing issues but doesn't recall coughing after eating or anything like that. He reports his has told him he should have a speech eval before. He remains afebrile. Platelets are improving and Hgb remaining low but vitals stable. Review of Systems Review of Systems: All systems reviewed & are unremarkable except as noted in Subjective Physical Exam Physical Exam: PHYSICAL EXAM General Appearance: frail, chronically ill appearing but non-toxic in NAD who is A&O x 3 HEENT: Head is normocephalic/atraumatic; Hearing grossly intact; Mucous membranes moist Neck: Supple; Trachea midline; Neg JVD Heart: RRR with systolic LUSB murmur with loud S2 Lungs: Dry weak cough; audible exp. wheeze which does seem to improve after coughing; rhonchi bilateral; Respirations mildly labored Abdomen: Soft, non-tender, non-distended; Positive BS x 4 quadrants Extremities: Neg cyanosis or edema Neurological: Speech clear; Gross motor/sensory function intact; Neg focal neurologic deficits Psychiatric: Appropriate mood/affect Skin: Normal Color; Warm/Dry; Neg rashes, ecchymosis, lacerations/ulcerations Results & Data Results & Data ([facility]) Vital Signs (Past 12 Hours) Vital Signs Temp Pulse Pulse Resp BP BP Pulse Ox 04/18/21 07:20 36.6 C 92 H 18 130/72 92 04/18/21 04:29 101 H 24 92 04/18/21 04:04 36.6 C 91 H 22 120/72 92 04/18/21 03:41 36.3 C L 93 H 18 117/67 92 PG Care Time/CCT Total # of Minutes Spent Total Time Spent with Patient: Total time spent is greater than 50% in coordination of care (as documented) at patient's floor/unit and/or counseling patient: Coding Level of Care Code 09637 Subseq Hosp Care Lvl 3 Diagnoses Pneumonia J18.9 Pancytopenia D61.818 Parkinsons G20 S/P aortic valve repair Z98.890 MDS (myelodysplastic syndrome) D46.9
[2021-04-18 16:16] LABS: Hematocrit (blood only) 23.3 % (42-52); Hemoglobin 8.3 g/dL (14.0-18.0); Mean Corpuscular Hemoglobin 30.1 pg (25-34); Mean Corpuscular Hgb Conc 35.6 g/dL (32-36); Mean Corpuscular Volume 84.4 fL (80-100); Mean Platelet Volume 8.8 fL (7.4-10.4); Platelet Count 32 K/uL (130-400); RDW Coefficient of Variation 15.4 % (11.5-14.5); Red Blood Count 2.76 M/uL (4.7-6.1); White Blood Count 0.65 K/uL (4.8-10.8)
[2021-04-18 16:32] LABS: Alanine Aminotransferase < 6 U/L (12-78); Albumin Level 1.8 gm/dl (3.4-5.0); Aspartate Aminotransferase 6 U/L (15-37); BUN Creatinine Ratio 21.9 (10-20); Blood Urea Nitrogen 20 mg/dl (7-18); Calcium 8.3 mg/dl (8.5-10.1); Carbon Dioxide 24 mmol/L (21-32); Chloride 102 mmol/L (98-107); Creatinine Clr Calc Pharmacy 66.2 ml/min; Est GFR (African American) 91.2 ml/min; Est GFR (Non-African American) 78.7 ml/min; Glucose 136 mg/dl (70-99); Potassium 3.9 mmol/L (3.5-5.1); Sodium 133 mmol/L (136-145)
[2021-04-18 16:36] LABS: Albumin Globulin Ratio 0.4 (0.9-2); Alkaline Phosphatase 237 U/L (45-117); Bilirubin,Total 1.2 mg/dl (0.2-1); Globulin 4.5 gm/dl (2.5-4.0); Total Protein 6.3 gm/dl (6.4-8.2)
[2021-04-18] MEDS: ALBUT/IPRATROP 3MG/0.5MG NEB 3 ML VIAL NEB SCH ×2 (19:34→23:07)
[2021-04-19] MEDS: ALBUT/IPRATROP 3MG/0.5MG NEB 3 ML VIAL NEB SCH ×6 (03:05→23:04)
[2021-04-19] MEDS: PIPERACILLIN/TAZOBACTAM 3.375 GM in DEXTROSE 5% 100 ML IV SCH ×3 (06:22→21:29)
[2021-04-19] MEDS: DOXYCYCLINE HYCLATE 100 MG in DEXTROSE 5% 100 ML IV SCH ×2 (06:22→19:13)
[2021-04-19] MEDS: DOCUSATE SODIUM 100 MG CAP PO SCH ×2 (08:42→19:49)
[2021-04-19] MEDS: FAMOTIDINE 20 MG TAB PO SCH ×2 (08:44→19:50)
[2021-04-19] MEDS: THIAMINE HCL 100 MG TAB PO SCH (08:44)
[2021-04-19] MEDS: guaiFENesin 600 MG TABCR PO SCH ×2 (08:45→19:49)
[2021-04-19] MEDS: CARBIDOPA/LEVODOPA 25/100MG EXT REL TAB PO SCH ×3 (08:46→19:50)
[2021-04-19] MEDS: CYANOCOBALAMIN 500 MCG TABLET (VITAMIN B-12) PO SCH (08:46)
[2021-04-19] MEDS ORDERED: FILGRASTIM 300 MCG/ML VIAL SQ SCH (12:00)
[2021-04-19 15:00] LABS: Mean Corpuscular Hgb Conc 34.9 g/dL (32-36)
[2021-04-19 15:17] LABS: Hematocrit (blood only) 21.8 % (42-52); Hemoglobin 7.6 g/dL (14.0-18.0); Hypogranular Neutrophils 2+; Lymphocytes # (auto) 0.24 K/uL (1.2-3.4); Lymphocytes % (auto) 34.3 %; Mean Corpuscular Hemoglobin 29.8 pg (25-34); Mean Corpuscular Volume 85.5 fL (80-100); Monocytes # (auto) 0.09 K/uL (0.11-0.59); Monocytes % (auto) 12.9 %; Neutrophils # (auto) 0.37 K/uL (1.4-6.5); Neutrophils % (auto) 52.8 %; Platelet Count 28 K/uL (130-400); Platelet Estimate SIGNIFIC DECREASED (Normal); Red Blood Count 2.55 M/uL (4.7-6.1)
[2021-04-19] MEDS ORDERED: SODIUM CHLORIDE 0.9% 250 ML IV PRN (15:21)
--- NOTE | 2021-04-19 17:40 | Hospitalist Progress Note ---
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 Treadwell reports patient has basically no bone marrow - Neutropenic precautions - Received 2 units packed RBCs, 1 unit Plt and Neupogen per [facility] recommendations on 04/18; will transfuse 2 units on 04/19 and monitor - Per Dr. Treadwell - recommending daily Neupogen to try and stimulate WBC (3) Parkinsons: Plan: - Continue Sinemet ER 25/100 TID (4) S/P aortic valve repair: Plan: - Bioprosthetic aortic valve (5) MDS (myelodysplastic syndrome): Plan: - Since last August. Not on current chemotherapy. Plan: - VTE prophylaxis - deferred in setting of thrombocytopenia - Disposition - requires ongoing hospital stay at this time; do not anticipate home needs -- Patient will be moving to [place] and is well established with a bone marrow specialist down there. Sees Dr. Treadwell on Mondays and for transfusions Admission and Anticipated Discharge Date Admission Date: April 17, 2021 Subjective Reports feeling a bit better today. Remains on RA. Denies SOB when resting but did have some SOB with ambulating with PT today. Spoke with his oncologist Dr. Treadwell this morning to provide update and recommendations for further treatment. Tolerating diet. Verbalizes no new complaints. Updated at bedside Review of Systems Review of Systems: All systems reviewed & are unremarkable except as noted in Subjective Physical Exam Physical Exam: PHYSICAL EXAM General Appearance: frail, chronically ill appearing but non-toxic in NAD who is A&O x 3 HEENT: Head is normocephalic/atraumatic; Hearing grossly intact; Mucous membranes moist Neck: Supple; Trachea midline; Neg JVD Heart: RRR with systolic LUSB murmur with loud S2 Lungs: Dry weak cough; CTA diffusely but diminished; no audible wheezing today Abdomen: Soft, non-tender, non-distended; Positive BS x 4 quadrants Extremities: Neg cyanosis or edema Neurological: Speech clear; Gross motor/sensory function intact; Neg focal neurologic deficits Psychiatric: Appropriate mood/affect; mask-like face Skin: Normal Color; Warm/Dry Results & Data Results & Data ([facility]) Vital Signs (Past 12 Hours) Vital Signs Temp Pulse Pulse Resp BP BP Pulse Ox 04/19/21 17:13 36.7 C 93 H 16 128/73 98 04/19/21 16:58 36.5 C 97 H 18 122/71 98 04/19/21 16:41 36.4 C L 92 H 20 133/78 98 04/19/21 16:21 91 H 22 96 04/19/21 15:11 36.9 C 85 16 118/70 97 04/19/21 13:20 94 04/19/21 11:13 87 20 96 04/19/21 07:36 36.5 C 91 H 18 132/76 95 04/19/21 07:06 91 H 20 90 PG Care Time/CCT Total # of Minutes Spent Total Time Spent with Patient: Total time spent is greater than 50% in coordination of care (as documented) at patient's floor/unit and/or counseling patient: Coding Level of Care Code 27519 Subseq Hosp Care Lvl 3 Diagnoses Pneumonia J18.9 Pancytopenia D61.818 Parkinsons G20 S/P aortic valve repair Z98.890 MDS (myelodysplastic syndrome) D46.9
[2021-04-20] MEDS: ALBUT/IPRATROP 3MG/0.5MG NEB 3 ML VIAL NEB SCH ×2 (04:17→08:08)
[2021-04-20] MEDS: PIPERACILLIN/TAZOBACTAM 3.375 GM in DEXTROSE 5% 100 ML IV SCH ×3 (05:15→21:48)
[2021-04-20 05:31] LABS: Hematocrit (blood only) 27.4 % (42-52); Hemoglobin 9.4 g/dL (14.0-18.0); Mean Corpuscular Hgb Conc 34.3 g/dL (32-36); Mean Corpuscular Volume 87.5 fL (80-100); Mean Platelet Volume 9.3 fL (7.4-10.4); Platelet Count 16 K/uL (130-400); RDW Coefficient of Variation 15.6 % (11.5-14.5); RDW Standard Deviation 50.2 fL (36.4-46.3); Red Blood Count 3.13 M/uL (4.7-6.1); White Blood Count 0.84 K/uL (4.8-10.8)
[2021-04-20 05:46] LABS: BUN Creatinine Ratio 20.7 (10-20); Calcium 8.2 mg/dl (8.5-10.1); Creatinine Clr Calc Pharmacy 81.7 ml/min; Est GFR (African American) 99.4 ml/min; Est GFR (Non-African American) 85.8 ml/min
[2021-04-20 05:53] LABS: ALC (manual) 0.39 K/uL (1.2-3.4); ANC (manual) 0.39 K/uL (1.4-6.5); Dohle Bodies Occasional; Eosinophils # (manual) 0.01 K/uL (0-0.5); Eosinophils % (manual) 0.9 %; Hypogranular Neutrophils 3+; Lymphocytes # (manual) 0.39 K/uL (1.2-3.4); Lymphocytes % (manual) 46.9 %; Monocytes # (manual) 0.04 K/uL (0.11-0.59); Monocytes % (manual) 5.3 %; Neutrophils # (manual) 0.39 K/uL (1.4-6.5); Neutrophils % (manual) 46.9 %; Toxic Granulation Occasional; Toxic Vacuolation Occasional
[2021-04-20] MEDS: DOXYCYCLINE HYCLATE 100 MG in DEXTROSE 5% 100 ML IV SCH ×2 (07:54→18:10)
[2021-04-20] MEDS: DOCUSATE SODIUM 100 MG CAP PO SCH ×2 (08:42→21:07)
[2021-04-20] MEDS: CYANOCOBALAMIN 500 MCG TABLET (VITAMIN B-12) PO SCH (08:42)
[2021-04-20] MEDS: CARBIDOPA/LEVODOPA 25/100MG EXT REL TAB PO SCH ×3 (08:42→21:07)
[2021-04-20] MEDS: THIAMINE HCL 100 MG TAB PO SCH (08:43)
[2021-04-20] MEDS: guaiFENesin 600 MG TABCR PO SCH ×2 (08:43→21:08)
[2021-04-20] MEDS: FAMOTIDINE 20 MG TAB PO SCH ×2 (08:43→21:07)
[2021-04-20] MEDS ORDERED: FILGRASTIM 300 MCG/ML VIAL SQ ONE (11:00)
[2021-04-20] MEDS: ALBUT/IPRATROP 3MG/0.5MG NEB 3 ML VIAL NEB PRN ×2 (15:00→20:31)
--- NOTE | 2021-04-20 16:22 | Hospitalist Progress Note ---
Date of Service April 20, 2021 Assessment & Plan (1) Pneumonia: Plan: - Was initiated on Symbicort x 4 weeks ago due to wheezing (x 10 days treatment); reported temporary relief but states his wheezing has been going on for years and has had a normal pulmonary work-up; recently started on Amoxicillin on 04/14 due to CXR findings of multifocal pneumonia - Continue Zosyn for aspiration concern and Doxycycline for atypical coverage; MRSA nasal swab negative and Vanc was D/Cd -- Will convert to Augmentin and Doxy orally to finish a course - given immunocompromised state will treat x 10 days -- Given length of illness, suspect this may have initiated as a viral illness that progressed to a bacterial illness - PHYSICIAN PRACTICE CONSULTANT evaluated for aspiration risk - no signs of aspiration - Albuterol PRN; Guaifenesin 1200 mg BID - Do not feel steroids will assist as no underlying lung disease - no lung field wheezing -- appears more secretions related which has been longstanding for years per patient//Dr. 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 Treadwell reports patient has basically no bone marrow - Neutropenic precautions - Received 2 units packed RBCs, 1 unit Plt and Neupogen per [facility]ology recommendations on 04/18; will transfuse 2 units on 04/19 and monitor -- Given Lasix 20 mg IV x 1 dose - Per Dr. Treadwell - recommending daily Neupogen to try and stimulate WBC (3) Parkinsons: Plan: - Continue Sinemet ER 25/100 TID (4) S/P aortic valve repair: Plan: - Bioprosthetic aortic valve (5) MDS (myelodysplastic syndrome): Plan: - Since last August. Not on current chemotherapy. Plan: - VTE prophylaxis - deferred in setting of thrombocytopenia - Disposition - requires ongoing hospital stay at this time; home services on D/ - suspect D/C on Saturday -- Patient will be moving to [place] and is well established with a bone marrow specialist down there. Sees Dr. Treadwell on Mondays and for transf usions as he is transfusion dependent Admission and Anticipated Discharge Date Admission Date: April 17, 2021 Subjective Reports feeling pretty well today. Breathing has stablized and remains on RA. Still has auditory wheezing but seems to improve some after he coughs. blood counts slowly improving. Review of Systems Review of Systems: All systems reviewed & are unremarkable except as noted in Subjective Physical Exam Physical Exam: PHYSICAL EXAM General Appearance: frail, chronically ill appearing but non-toxic in NAD who is A&O x 3 HEENT: Head is normocephalic/atraumatic; Hearing grossly intact; Mucous membranes moist Neck: Supple; Trachea midline; Neg JVD Heart: RRR with systolic LUSB murmur with loud S2 Lungs: Dry weak cough; CTA diffusely but diminished; no audible wheezing today Abdomen: Soft, non-tender, non-distended; Positive BS x 4 quadrants Extremities: Neg cyanosis or edema Neurological: Speech clear; Gross motor/sensory function intact; Neg focal neurologic deficits Psychiatric: Appropriate mood/affect; mask-like face Skin: Normal Color; Warm/Dry Results & Data Results & Data ([facility]) Vital Signs (Past 12 Hours) Vital Signs Temp Pulse Resp BP Pulse Ox 04/20/21 15:00 88 18 97 04/20/21 14:40 36.6 C 89 19 148/83 H 97 04/20/21 13:51 98 04/20/21 08:08 84 16 96 04/20/21 07:34 36.4 C L 90 20 134/76 96 PG Care Time/CCT Total # of Minutes Spent Total Time Spent with Patient: Total time spent is greater than 50% in coordination of care (as documented) at patient's floor/unit and/or counseling patient: Coding Level of Care Code 11576 Subseq Hosp Care Lvl 3 Diagnoses Pneumonia J18.9 Pancytopenia D61.818 Parkinsons G20 S/P aortic valve repair Z98.890 MDS (myelodysplastic syndrome) D46.9
[2021-04-20] MEDS ORDERED: FUROSEMIDE INJ 20 MG/2 ML VIAL IV ONE (16:44)
[2021-04-21] MEDS: ALBUT/IPRATROP 3MG/0.5MG NEB 3 ML VIAL NEB PRN ×2 (04:46→21:47)
[2021-04-21] MEDS: DOXYCYCLINE HYCLATE 100 MG CAP PO SCH ×2 (08:57→20:06)
[2021-04-21] MEDS: CARBIDOPA/LEVODOPA 25/100MG EXT REL TAB PO SCH ×3 (08:57→20:06)
[2021-04-21] MEDS: DOCUSATE SODIUM 100 MG CAP PO SCH ×2 (08:57→20:06)
[2021-04-21] MEDS: guaiFENesin 600 MG TABCR PO SCH ×2 (08:57→20:05)
[2021-04-21] MEDS: THIAMINE HCL 100 MG TAB PO SCH (08:57)
[2021-04-21] MEDS: AMOXICILLIN/CLAVULANATE 875 MG TAB PO SCH ×2 (08:57→17:37)
[2021-04-21] MEDS: FAMOTIDINE 20 MG TAB PO SCH ×2 (08:57→20:05)
[2021-04-21] MEDS: CYANOCOBALAMIN 500 MCG TABLET (VITAMIN B-12) PO SCH (08:57)
[2021-04-21] MEDS ORDERED: FILGRASTIM 300 MCG/ML VIAL SQ SCH (09:00)
--- NOTE | 2021-04-21 12:57 | Hospitalist Progress Note ---
Date of Service April 21, 2021 Assessment & Plan (1) Pneumonia: Plan: - Was initiated on Symbicort x 4 weeks ago due to wheezing (x 10 days treatment); reported temporary relief but states his wheezing has been going on for years and has had a normal pulmonary work-up; recently started on Amoxicillin on 04/14 due to CXR findings of multifocal pneumonia - Initially treated with Zosyn for aspiration concern and Doxycycline for atypical coverage; MRSA nasal swab negative and Vanc was D/Cd -- Converted to Augmentin and Doxy orally to finish a course - given immunocompromised state will treat x 10 days -- 26 March -- Given length of illness, suspect this may have initiated as a viral illness that progressed to a bacterial illness - 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 Treadwell reports patient has basically no bone marrow - Neutropenic precautions - Received 2 units packed RBCs, 1 unit Plt and Neupogen per [facility] recommendations on 04/18; will transfuse 2 units on 04/19 and monitor -- Given Lasix 20 mg IV x 1 dose on 04/20 - Labs in AM - transfuse pending numbers - Per Dr. Treadwell - recommending daily Neupogen to try and stimulate WBC (3) Parkinsons: Plan: - Continue Sinemet ER 25/100 TID (4) S/P aortic valve repair: Plan: - Bioprosthetic aortic valve (5) MDS (myelodysplastic syndrome): Plan: - Since last August. Not on current chemotherapy. Plan: - VTE prophylaxis - deferred in setting of thrombocytopenia - Disposition - requires ongoing hospital stay at this time; home services on D/ - suspect D/C on Saturday -- Patient will be moving to [place] and is well established with a bone marrow specialist down there. Sees Dr. Treadwell on Mondays and for transfusions as he is transfusion dependent Admission and Anticipated Discharge Date Admission Date: April 17, 2021 Subjective Reports doing overall okay today. Did have some production of phlegm this morning but predominantly a dry cough. Remaining on RA. Tolerating diet. Verbalizes no other complaints. Review of Systems Review of Systems: All systems reviewed & are unremarkable except as noted in Subjective Physical Exam Physical Exam: PHYSICAL EXAM General Appearance: frail, chronically ill appearing but non-toxic in NAD who is A&O x 3 HEENT: Head is normocephalic/atraumatic; Hearing grossly intact; Mucous membranes moist Neck: Supple; Trachea midline; Neg JVD Heart: RRR with systolic LUSB murmur with loud S2 Lungs: Dry weak cough; CTA diffusely but diminished; no audible wheezing currently Abdomen: Soft, non-tender, non-distended; Positive BS x 4 quadrants Extremities: Neg cyanosis or edema Neurological: Speech clear; Gross motor/sensory function intact; Neg focal neurologic deficits Psychiatric: Appropriate mood/affect; mask-like face Skin: Normal Color; Warm/Dry Results & Data Results & Data ([facility]) Vital Signs (Past 12 Hours) Vital Signs Temp Pulse Resp BP Pulse Ox 04/21/21 07:25 37.0 C 90 20 126/72 95 04/21/21 06:15 36.4 C L 90 17 129/74 93 04/21/21 04:46 97 H 20 99 PG Care Time/CCT Total # of Minutes Spent Total Time Spent with Patient: Total time spent is greater than 50% in coordination of care (as documented) at patient's floor/unit and/or counseling patient: Coding Level of Care Code 14931 Subseq Hosp Care Lvl 3 Diagnoses Pneumonia J18.9 Pancytopenia D61.818 Parkinsons G20 S/P aortic valve repair Z98.890 MDS (myelodysplastic syndrome) D46.9
[2021-04-21] MEDS: BENZONATATE 100 MG CAPSULE PO SCH ×2 (15:21→20:07)
[2021-04-21] MEDS ORDERED: CALCIUM CARBONATE 500 MG CHEWABLE TAB PO PRN (21:44)
[2021-04-22] MEDS: CYANOCOBALAMIN 500 MCG TABLET (VITAMIN B-12) PO SCH (09:28)
[2021-04-22] MEDS: THIAMINE HCL 100 MG TAB PO SCH (09:28)
[2021-04-22] MEDS: guaiFENesin 600 MG TABCR PO SCH (09:28)
[2021-04-22] MEDS: BENZONATATE 100 MG CAPSULE PO SCH ×2 (09:29→14:29)
[2021-04-22] MEDS: DOCUSATE SODIUM 100 MG CAP PO SCH (09:29)
[2021-04-22] MEDS: FAMOTIDINE 20 MG TAB PO SCH (09:29)
[2021-04-22] MEDS: DOXYCYCLINE HYCLATE 100 MG CAP PO SCH (09:29)
[2021-04-22] MEDS: AMOXICILLIN/CLAVULANATE 875 MG TAB PO SCH (09:29)
[2021-04-22] MEDS: CARBIDOPA/LEVODOPA 25/100MG EXT REL TAB PO SCH ×2 (09:29→14:29)
[2021-04-22 10:41] LABS: Hematocrit (blood only) 26.7 % (42-52); Hemoglobin 9.1 g/dL (14.0-18.0); Mean Corpuscular Hemoglobin 29.7 pg (25-34); Mean Corpuscular Hgb Conc 34.1 g/dL (32-36); Mean Corpuscular Volume 87.3 fL (80-100); Mean Platelet Volume 10.5 fL (7.4-10.4); Platelet Count 4 K/uL (130-400); RDW Coefficient of Variation 14.9 % (11.5-14.5); RDW Standard Deviation 47.8 fL (36.4-46.3); Red Blood Count 3.06 M/uL (4.7-6.1); White Blood Count 0.88 K/uL (4.8-10.8)
[2021-04-22 10:48] LABS: BUN Creatinine Ratio 19.9 (10-20); Calcium 8.3 mg/dl (8.5-10.1); Creatinine Clr Calc Pharmacy 72.7 ml/min; Est GFR (African American) 94.8 ml/min; Est GFR (Non-African American) 81.8 ml/min; Potassium 3.6 mmol/L (3.5-5.1)
[2021-04-22 11:05] LABS: ALC (manual) 0.32 K/uL (1.2-3.4); ANC (manual) 0.41 K/uL (1.4-6.5); Basophils # (manual) 0.03 K/uL (0-0.2); Basophils % (manual) 3.1 %; Lymphocytes # (manual) 0.32 K/uL (1.2-3.4); Lymphocytes % (manual) 36.5 %; Monocytes # (manual) 0.11 K/uL (0.11-0.59); Monocytes % (manual) 12.5 %; Myelocytes # (manual) 0.01 K/uL (0-0); Neutrophils # (manual) 0.41 K/uL (1.4-6.5); Neutrophils % (manual) 46.9 %; Platelet Estimate SIGNIFIC DECREASED (Normal)
--- NOTE | 2021-04-22 17:29 | Discharge Summary ---
Date of Service April 22, 2021 Admission HPI Per Admitting Provider Jono Warner is an 85 year old male with Parkinson's and MDS who presents to the ER with productive cough (unknown color), shortness of breath, chest pain (right sided, no radiation, worse on palpation). Sick for the last 2-3 weeks. Last 2-4 days he has been much worse and waking up in morning with mouthful of phlegm. Shortness of breath non-positional, worse on exertion. He was started on Symbicort 4 weeks ago due to wheezing (10 day course reported by patient). He reports temporary relief using this and notes his wheezing has been going on for years with normal pulmonology workup.. CXR was negative at t hat time. Started 04/14 on amoxicillin due to CXR findings showing multifocal pneumonia at that time. No known choking/coughing after eating. Nose bleed 1 week ago. Prone to spontaneous bleeding but resolves quickly. Feels constipated with black stool but this is longstanding, no new change in bowels. In the ER CXR is concerning for aspiration pneumonia. SARS-COV-2 negative. Plt 3, Hgb 7.4 and WBC 0.45. He was diagnosed with pneumonia, blood cultures taken and he was started on broad spectrum antibiotics with cefepime, doxycycline and vancomycin. Regarding his pancytopenia. This was discussed with his hematology (Dr Treadwell) and recommend Neupogen, Plt transfusion and 2 units blood transfusion. He was referred to medicine for admission and ongoing management. Principal Diagnosis Multifocal Pneumonia; Chronic Pancytopenia Discharge Exam PHYSICAL EXAM General Appearance: frail, chronically ill appearing but non-toxic in NAD who is A&O x 3 HEENT: Head is normocephalic/atraumatic; Hearing grossly intact; Mucous membranes moist Neck: Supple; Trachea midline; Neg JVD Heart: RRR with systolic LUSB murmur with loud S2 Lungs: Dry weak cough; CTA diffusely but diminished at bases; no audible wheezing currently Abdomen: Soft, non-tender, non-distended; Positive BS x 4 quadrants Extremities: Neg cyanosis or edema Neurological: Speech clear; Gross motor/sensory function intact; Neg focal neurologic deficits, gait with stooped shoulders but no lose of balance Psychiatric: Appropriate mood/affect; mask-like face Skin: Normal Color; Warm/Dry Discharge Data Allergies Allergy/AdvReac Type Severity Reaction Status Date / Time Sulfa (Sulfonamide Allergy Mild Unknown Verified 04/24/21 11:47 Antibiotics) oxycodone Allergy Unknown Unknown Verified 04/24/21 11:47 Consultations 04/17/21 12:26 ED Decision to Admit Stat Ordered Studies Chest X-Ray 04/17/21 10:16 XR chest 1V portable CLINICAL HISTORY: Dyspnea. COMPARISON STUDY: 04/14/2021 TECHNIQUE: 1 view of the chest FINDINGS: Single frontal view of the chest demonstrates the cardiomediastinal silhouette to be within normal limits. The patient is status post previous cardiothoracic surgery. Compared to examination, confluent alveolar opacities are now seen within both the right upper and right lower lobes. Left hemithorax is clear. These findings suggest possible aspiration pneumonitis. There is no evidence for pleural effusion. There is no evidence for vascular congestion. There is no acute osseous pathology. IMPRESSION: Interval development of confluent alveolar opacities within both the right upper and right lower lobes. This rapid development of these large alveolar opacities suggest possible aspiration pneumonitis. ACT 112: Negative or not required by law. Electronically signed by: Isaac Kendall M.D. 04/17/2021 11:12 AM Hospital Course (1) Pneumonia: - Was initiated on Symbicort x 4 weeks ago due to wheezing (x 10 days treatment); reported temporary relief but states his wheezing has been going on for years and has had a normal pulmonary work-up; recently started on Amoxicillin on 04/14 due to CXR findings of multifocal pneumonia - Initially treated with Zosyn for aspiration concern and Doxycycline for atypical coverage; MRSA nasal swab negative and Vanc was D/Cd -- Converted to Augmentin and Doxy orally to finish a course - given immunocompromised state will treat x 10 days total -- 26 March -- Given length of illness, suspect this may have initiated as a viral illness that progressed to a bacterial illness - STUMP BLOWER evaluated for aspiration risk - no signs of aspiration - Albuterol PRN; Guaifenesin 1200 mg BID - Do not feel steroids will assist as no underlying lung disease - no lung field wheezing -- appears more secretions related which has been longstanding for years per patient//Dr. 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 Treadwell reports patient has basically no bone marrow - Neutropenic precautions - Received 4 units packed RBCs, 3 unit Plt and Neupogen per [facility] hematology recommendations during hospitalization; -- Given Lasix 20 mg IV x 1 dose on 04/20 -- WBC currently 0.88 (slowly trending up), Total abs neutrophils 0.41 (slowly trending up); Hgb 9.1; platelets were 4 on AM labs but did transfuse 1 unit but did not recheck on D/C - Follows with Dr. Treadwell on Saturday/ for transfusion - plan to continue normal transfusion plan - Did discuss with Dr. Treadwell on multiple occasions during admission (3) Parkinsons: - Continue Sinemet ER 25/100 TID (4) S/P aortic valve repair: - Bioprosthetic aortic valve (5) MDS (myelodysplastic syndrome): - Since last August. Not on current chemotherapy. - VTE prophylaxis - deferred in setting of thrombocytopenia - Disposition -- Patient will be moving to [place] and is well established with a bone marrow specialist down there. Sees Dr. Treadwell on Mondays and for transfusions as he is transfusion dependent -- Complete Abx course and inhaler/spacer provided -- Updated and daughter at bedside on day of discharge Total Time Total Time Spent Total Time Spent (In Minutes): Spent greater than 30 minutes preparing patient for discharge. This includes discussion with patient/family, assessment, intervention, medication reconciliation, and coordination of care. Discharge Plan Discharge Items Patient Disposition: Home - Home Health Services Reason For Visit: PANCYTOPENIA,PNEUMONIA Discharge Diagnosis: Pneumonia; Chronic Pancytopenia Activity: Resume your previous activity Non-emergency contact: Primary Care Provider Call non-emergency contact if: you have any medication questions, your symptoms worsen and you have a fever Follow-up/Referrals: Puneet Sawant MD [Primary Care Provider] - 04/27/21 10:30 am Diet: Regular Addtl Attending Provider Instructions: Pneumonia: - You were admitted for pneumonia. Given the length of your symptoms you may have started off as a viral upper respiratory illness that unfortunately developed into a bacterial pneumonia. - We will continue a course of antibiotics to complete a 10 day course. This in cludes the days of antibiotics you had here. -- You will take Augmentin twice a day until March 26. You had one dose this morning in the hospital so take one dose tonight on 04/22 then resume twice a day tomorrow -- You will also take Doxycycline twice a day until March 26. You had one dose this morning in the hospital so take one dose tonight on 04/22 then resume twice a day tomorrow - Will also prescribe an albuterol (rescue) inhaler with a spacer. You can take up to 4 doses a day as needed - You were seen by speech language pathology to just to see if you were aspirating (food going down the wrong tube into the lungs). Thankfully there were no signs of this on testing. With a history of Parkinsons it is important to be mindful of your secretions as you are at increased risk for aspiration - You can continue Mucinex over the counter if you feel this is helping thin your mucous/phlegm. - Given the antibiotics and your low immune system. Would recommend continuing probiotics while on the antibiotics to prevent an illness called clostridium difficile which is a GI tract infection that can cause fever, frequent diarrhea, abdominal pain. Antibiotics can make your stool looser but if you are going to the bathroom very frequently to with watery diarrhea please call your doctor as you may need tested for clostridium difficile. Pancytopenia (Low Blood Counts) - This is due to your myelodysplastic syndrome and you require regular transfusions to maintain your blood counts. - You were given Neupogen in the hospital to help with your white blood cells - they are currently - Your hemoglobin is - Your platelets are - Please follow-up with Dr. Treadwell as you normally do for your transfusions - You do have low neutrophils which means you are at increased risk for infec tions. Please avoid anyone that is ill even if it seems like a very mild cold/illness as it can be more pronounced for you since your blood counts are low Home Medications: - Please continue your home medications as previously prescribed. We did not make adjustments to these Pending Studies at Discharge: No Stand-Alone Forms: My [facility] [employer] [place], Smoking Cessation Medications and DC Order Prescriptions: New amoxicillin-pot clavulanate [Augmentin] 875-125 mg Tablet 1 tab PO BIDM Qty: 9 RF: 0 doxycycline hyclate 100 mg Capsule 100 mg PO BID Qty: 9 RF: 0 benzonatate 100 mg capsule 100 mg PO TID PRN (Reason: cough) 5 Days Qty: 15 RF: 0 albuterol sulfate 90 mcg/actuation HFA aerosol inhaler 1 inh inhalation Q6H PRN (Reason: shortness of breath or wheezing) Qty: 8.5 RF: 0 (DME) Spacer for Inhaler Misc See Rx Instructions .Route Qty: 1 RF: 0 Continued famotidine [Pepcid] 20 mg tablet 20 mg PO BID RF: 0 guaifenesin [Mucinex] 600 mg tablet extended release 12hr 600 mg PO UD PRN (Reason: Cough) RF: 0 docusate sodium [Colace] 100 mg Capsule 100 mg PO BID RF: 0 carbidopa-levodopa 25-100 mg tablet extended release 1 tab PO TID RF: 0 thiamine HCl (vitamin B1) [Vitamin B-1] 100 mg Tablet 100 mg PO DAILY RF: 0 Vitamin B-12 1,000 mcg/mL Drops 1,000 mcg PO DAILY RF: 0 Discontinued amoxicillin 875 mg tablet 875 mg PO BID RF: 0 Discharge Orders: Discharge Order (Routine); Ordered 04/22/21 Ordered By: Kimberly Wynne Admission Data Admit Date/Time: 04/17/21 12:56 Attending Provider: Karan Oconnell Admit Provider: Sandeep Harris Primary Care Provider: Puneet Sawant Other Providers: Sandeep Harris ; [facility] Other Interventions: Discharge Summary Assessment (RN) Last Done: 04/22/21 15:25 Supervising Physician Co-Signing Physician Notes Attending note: patient seen and examined with Kimberly Wynne PA-C. I agree with her discharge summary. I personally reviewed the labs and imaging findings. patient doing well, eating well, no fever, no dyspnea Hb stable, platelets low and will give a unit of platelets prior to discharge, WBC is 0.88 - Pancytopenia due to MDS: managed by regular transfusions of platelets, RBC and neupogen, follow up closely with Dr. Treadwell - Pneumonia: complete course of Augmentin and Doxycycline at home, responded well to IV antibiotics Coding Level of Care Code D/C DAY MANAGEMENT >30 MINS Diagnoses Pneumonia J18.9 Pancytopenia D61.818 Parkinsons G20 S/P aortic valve repair Z98.890 MDS (myelodysplastic syndrome) D46.9
== END 2021-04-22 15:50 | disposition home health service (06) | DRG 194 ==
LOC: ED 09:19 → 3E 12:56 → SUATTDRO 12:56 → 3E 14:17